=== PATIENT | male | born 1950 | race Caucasian/White ===

== ENCOUNTER 2017-06-30 13:33 | Inpatient (IN) | payer MEDICAID, MEDICARE ==
[~2017-06-30] VITALS: Ht 182.9 cm; Wt 76.2 kg
[2017-06-30] MEDS ORDERED: SODIUM CHLORIDE 0.9% 1,000 ML IVB ONE (13:49)
[2017-06-30 14:26] LABS: Basophils # (auto) 0.1 uL; Basophils % (auto) 1.1 % (0.0-2.0); Eosinophils # (auto) 0.2 uL; Eosinophils % (auto) 3.3 % (0.0-7.0); Hematocrit 39.3 % (41.0-53.0); Hemoglobin 13.1 g/dL (13.5-17.5); Lymphocytes # (auto) 0.7 uL; Lymphocytes % (auto) 9.5 % (10.0-50.0); Mean Corpuscular Hemoglobin 31.8 pg (28.0-32.0); Mean Corpuscular Hgb Conc. 33.3 g/dL (32.0-36.0); Mean Corpuscular Volume 95.5 fL (80.0-100.0); Monocytes # (auto) 0.8 uL; Monocytes % (auto) 11.2 % (0.0-12.0); Neutrophils # (auto) 5.7 uL; Neutrophils % (auto) 74.9 % (37.0-80.0); Platelet Count (auto) 219 10^3/uL (140-450); Red Blood Cells 4.11 10^6/uL (4.5-5.90); Red Cell Distribution Width 14.1 % (11.8-14.3); White Blood Cell 7.6 10^3/uL (4.4-10.8)
[2017-06-30 14:41] LABS: INR 0.99 (0.9-1.15); Partial Thromboplastin Time 30.8 sec (22.64-33.71); Prothrombin Time 10.8 sec (9.37-12.3)
[2017-06-30 14:47] LABS: Albumin 3.9 g/dL (3.4-5.0); BUN/Creatinine Ratio 32.9; Bilirubin, Total 0.6 mg/dL (0.2-1.0); Calcium 8.8 mg/dL (8.5-10.1); Magnesium 2.2 mg/dL (1.6-2.6); Potassium 3.7 mmol/L (3.5-5.1); Total Protein 7.3 g/dL (6.4-8.2)
[2017-06-30] MEDS ORDERED: LACTULOSE 20Gm/30ML SOLN PO PRN (16:30)
[2017-06-30] MEDS ORDERED: LABETALOL HCL 5 MG/ML ML 20ML VIAL IV PRN (16:30)
[2017-06-30] MEDS ORDERED: NITROGLYCERIN 0.4 MG SL TAB SL PRN (16:30)
[2017-06-30] MEDS ORDERED: MORPHINE SULFATE 4 MG/ML SYR/VIAL IV PRN (16:30)
[2017-06-30] MEDS: SODIUM CHLORIDE 0.9% 1,000 ML IV SCH ×3 (16:39→22:05)
[2017-06-30] MEDS ORDERED: ASPirin 81 mg TAB PO ONE (17:00)
[2017-06-30] MEDS ORDERED: ENALAPRIL MALEATE 2.5 MG TAB PO ONE (17:00)
[2017-06-30 17:18] LABS: Folate (Folic Acid) 12.06 ng/mL (5.38-24)
[2017-06-30] MEDS: ENOXAPARIN SOD 40 MG/0.4 ML SYRINGE SC SCH (17:22)
[2017-06-30] MEDS ORDERED: FLUoxetine HCL 10 MG CAP PO ONE (17:45)
[2017-06-30] MEDS ORDERED: LACTULOSE 20Gm/30ML SOLN PO ONE (17:45)
[2017-06-30] MEDS ORDERED: cefTRIAXone 1GM/10ml IVPUSH 10 ML IV ONE (17:45)
[2017-06-30 18:47] VITALS: BP 158/104
[2017-06-30] MEDS: LORazepam 0.5 MG TAB PO PRN (20:44)
[2017-06-30] MEDS ORDERED: IOHEXOL 350 MG/ML 100ML IJ ONE (21:01)
[2017-06-30 21:48] VITALS: BP 153/81
[2017-06-30] MEDS ORDERED: LACTULOSE 20Gm/30ML SOLN PO SCH (22:00)
[2017-06-30] MEDS: CLINDAMYCIN 600MG IV 50 ML IV SCH (22:04)
[2017-06-30] MEDS: ATORVASTATIN 20 MG TAB PO SCH (22:05)
[2017-07-01] VITALS (7 sets, daily range): BP systolic 128–156; BP diastolic 79–105
[2017-07-01] MEDS: MORPHINE SULFATE 4 MG/ML SYR/VIAL IV PRN ×3 (02:03→18:52)
[2017-07-01] MEDS: PROMETHAZINE HCL 25 MG/ML 1ML IV PRN ×2 (02:03→06:39)
[2017-07-01] MEDS: CLINDAMYCIN 600MG IV 50 ML IV SCH ×3 (06:34→22:43)
[2017-07-01] MEDS ORDERED: BACL10TA PO (07:32)
[2017-07-01] MEDS ORDERED: CARV3.1240 PO (07:32)
[2017-07-01] MEDS ORDERED: LISI10TA6 PO (07:32)
[2017-07-01] MEDS ORDERED: TRAM50TA2 PO (07:32)
[2017-07-01] MEDS ORDERED: ASPirin 81 mg TAB PO SCH (10:00)
[2017-07-01] MEDS: ENOXAPARIN SOD 40 MG/0.4 ML SYRINGE SC SCH (10:51)
[2017-07-01] MEDS: ENALAPRIL MALEATE 2.5 MG TAB PO SCH (10:52)
[2017-07-01] MEDS: ASPirin 81 mg TAB PO SCH (10:52)
[2017-07-01] MEDS: FLUoxetine HCL 10 MG CAP PO SCH (10:52)
[2017-07-01] MEDS: cefTRIAXone 1GM/10ml IVPUSH 10 ML IV SCH (10:52)
[2017-07-01] MEDS: SODIUM CHLORIDE 0.9% 1,000 ML IV SCH ×2 (10:53→17:31)
[2017-07-01] MEDS: LORazepam 0.5 MG TAB PO PRN (11:07)
[2017-07-01] MEDS: BACLOFEN 10 MG TAB PO PRN (16:34)
[2017-07-01] MEDS: ATORVASTATIN 20 MG TAB PO SCH (22:43)
[2017-07-02] VITALS (7 sets, daily range): BP systolic 112–151; BP diastolic 71–93
[2017-07-02] MEDS: BACLOFEN 10 MG TAB PO PRN (02:27)
[2017-07-02] MEDS: MORPHINE SULFATE 4 MG/ML SYR/VIAL IV PRN ×4 (02:36→20:39)
[2017-07-02] MEDS: SODIUM CHLORIDE 0.9% 1,000 ML IV SCH ×2 (04:00→13:04)
[2017-07-02] MEDS: LORazepam 0.5 MG TAB PO PRN (05:25)
[2017-07-02] MEDS: CLINDAMYCIN 600MG IV 50 ML IV SCH ×3 (05:35→22:39)
[2017-07-02 07:20] LABS: Urine Bacteria NONE SEEN /hpf (None Seen); Urine Blood Negative /uL (Negative); Urine Mucus FEW (None Seen); Urine Specific Gravity 1.015 (1.001-1.035); Urine WBC <1 /hpf (0 - 3)
[2017-07-02 07:26] LABS: Alcohol, Urine < 3.0 mg/dL (0-5); Amphetamine Screen, Urine NEGATIVE (NEGATIVE); Barbiturate Scree,Urine NEGATIVE (NEGATIVE); Benzodiazephine Screen, Urine NEGATIVE (NEGATIVE); Cannabinoid Screen, Urine POSITIVE (NEGATIVE); Cocaine Screen, Urine NEGATIVE (NEGATIVE); Opiate Scree,Urine POSITIVE (NEGATIVE); Phencyclidine Screen, Urine NEGATIVE (NEGATIVE)
[2017-07-02] MEDS: ENOXAPARIN SOD 40 MG/0.4 ML SYRINGE SC SCH (13:01)
[2017-07-02] MEDS: ASPirin 81 mg TAB PO SCH (13:03)
[2017-07-02] MEDS: cefTRIAXone 1GM/10ml IVPUSH 10 ML IV SCH (13:03)
[2017-07-02] MEDS: ENALAPRIL MALEATE 2.5 MG TAB PO SCH (13:03)
[2017-07-02] MEDS: FLUoxetine HCL 10 MG CAP PO SCH (13:03)
[2017-07-02] MEDS: ATORVASTATIN 20 MG TAB PO SCH (22:39)
[2017-07-02] MEDS: TEMAZEPAM 15 MG CAP PO PRN (23:33)
[2017-07-03 05:00] VITALS: BP_SYST 118; BP_SYST 125; BP_SYST 127; BP_DIAS 101; BP_DIAS 96; BP_DIAS 98
[2017-07-03] MEDS: BACLOFEN 10 MG TAB PO PRN ×2 (05:38→13:57)
[2017-07-03] MEDS: MORPHINE SULFATE 4 MG/ML SYR/VIAL IV PRN ×3 (05:39→19:06)
[2017-07-03] MEDS: CLINDAMYCIN 600MG IV 50 ML IV SCH ×3 (05:39→21:02)
[2017-07-03 07:08] LABS: Potassium 3.9 mmol/L (3.5-5.1)
[2017-07-03 07:12] LABS: BUN/Creatinine Ratio 14.3; Calcium 8.8 mg/dL (8.5-10.1)
[2017-07-03 07:30] VITALS: BP 125/87
[2017-07-03 08:15] VITALS: BP_SYST 103; BP_SYST 125; BP_SYST 130; BP_DIAS 74; BP_DIAS 82; BP_DIAS 87
[2017-07-03] MEDS: LORazepam 0.5 MG TAB PO PRN (09:57)
[2017-07-03] MEDS: cefTRIAXone 1GM/10ml IVPUSH 10 ML IV SCH (09:58)
[2017-07-03] MEDS: FLUoxetine HCL 10 MG CAP PO SCH (09:58)
[2017-07-03] MEDS: ASPirin 81 mg TAB PO SCH (09:58)
[2017-07-03] MEDS: ENALAPRIL MALEATE 2.5 MG TAB PO SCH (09:58)
[2017-07-03] MEDS: ENOXAPARIN SOD 40 MG/0.4 ML SYRINGE SC SCH (09:59)
[2017-07-03] MEDS: SODIUM CHLORIDE 0.9% 1,000 ML IV SCH ×2 (09:59)
[2017-07-03] MEDS ORDERED: IOHEXOL 350 MG/ML 100ML IJ ONE (10:10)
[2017-07-03 11:50] VITALS: BP 143/83
[2017-07-03 17:13] VITALS: BP 126/93
[2017-07-03] MEDS: TEMAZEPAM 15 MG CAP PO PRN (21:02)
[2017-07-03] MEDS: ATORVASTATIN 20 MG TAB PO SCH (21:02)
[2017-07-03 22:00] VITALS: BP 134/77
[2017-07-04] MEDS: MORPHINE SULFATE 4 MG/ML SYR/VIAL IV PRN ×4 (00:10→13:57)
[2017-07-04] MEDS: LORazepam 0.5 MG TAB PO PRN (02:36)
[2017-07-04] MEDS: PROMETHAZINE HCL 25 MG/ML 1ML IV PRN (02:36)
[2017-07-04] MEDS: BACLOFEN 10 MG TAB PO PRN ×2 (02:57→10:51)
[2017-07-04 05:00] VITALS: BP 129/105
[2017-07-04] MEDS: CLINDAMYCIN 600MG IV 50 ML IV SCH ×2 (05:31→13:42)
[2017-07-04 08:00] VITALS: BP 125/87
[2017-07-04] MEDS: SODIUM CHLORIDE 0.9% 1,000 ML IV SCH (08:00)
[2017-07-04 09:00] VITALS: BP 145/92
[2017-07-04] MEDS: ASPirin 81 mg TAB PO SCH (09:04)
[2017-07-04] MEDS: cefTRIAXone 1GM/10ml IVPUSH 10 ML IV SCH (09:04)
[2017-07-04] MEDS: ENOXAPARIN SOD 40 MG/0.4 ML SYRINGE SC SCH (09:05)
[2017-07-04] MEDS: ENALAPRIL MALEATE 2.5 MG TAB PO SCH (09:06)
[2017-07-04] MEDS ORDERED: FLUoxetine HCL 20 MG CAP PO SCH (10:00)
[2017-07-04 13:00] VITALS: BP 132/86
[2017-07-04 15:28] VITALS: BP 129/105
== END 2017-07-04 15:55 | disposition home health service (06) | DRG 68 ==
LOC: EDUNIT# 13:33 → ER 13:33 → EDBD 13:33 → TELE 13:34 → TELE-CENTR 18:34 → TELE-WESTW 07-01 00:25
PROVIDERS: ADMIT Internal Medicine; ATTEND Family Medicine
DX: I65.21 Occlusion and stenosis of right carotid artery (principal); I71.2 Thoracic aortic aneurysm, without rupture; L03.115 Cellulitis of right lower limb; G62.9 Polyneuropathy, unspecified; R45.851 Suicidal ideations; J44.1 Chronic obstructive pulmonary disease with (acute) exacerbation; I95.1 Orthostatic hypotension; I67.2 Cerebral atherosclerosis; F12.10 Cannabis abuse, uncomplicated; F32.9 Major depressive disorder, single episode, unspecified; F41.9 Anxiety disorder, unspecified; G89.29 Other chronic pain; I10 Essential (primary) hypertension; I70.0 Atherosclerosis of aorta; I71.4 Abdominal aortic aneurysm, without rupture; L98.9 Disorder of the skin and subcutaneous tissue, unspecified; M19.90 Unspecified osteoarthritis, unspecified site; M20.10 Hallux valgus (acquired), unspecified foot; M21.00 Valgus deformity, not elsewhere classified, unspecified site; M21.619 Bunion of unspecified foot; M47.814 Spondylosis without myelopathy or radiculopathy, thoracic region; M54.16 Radiculopathy, lumbar region; Z86.79 Personal history of other diseases of the circulatory system; Z87.891 Personal history of nicotine dependence; Z98.49 Cataract extraction status, unspecified eye; Z88.8 Allergy status to other drugs, medicaments and biological substances; Z88.5 Allergy status to narcotic agent; Z79.82 Long term (current) use of aspirin
CPT/HCPCS: 36415; 70450; 70498; 71045; 71275; 73600; 73630; 80048; 80053; 80307; 81001; 82550; 82607; 82746; 83036; 83735; 83880; 84443; 84484; 85025; 85379; 85610; 85652; 85730; 86141; 93005; 93886; 93971; 94761; 95819; 96360; 97116; 97163; 97530; J3490

== ENCOUNTER 2017-07-22 00:11 | Emergency (ER) | payer SELFPAY ==
[~2017-07-22] VITALS: Ht 185.4 cm; Wt 68.0 kg
[~2017-07-22 00:11] MED LIST: BACL10TA PO; CARV3.1240 PO; LISI10TA6 PO; TRAM50TA2 PO
[2017-07-22] MEDS ORDERED: ALBUTEROL SULF 2.5 MG/0.5ML(0.5%) NEB SOLN NEB ONE (02:00)
[2017-07-22] MEDS ORDERED: BUDESONIDE (INHALATION) 0.5 MG/2 ML NEB NEB ONE (02:00)
[2017-07-22 02:05] VITALS: BP 120/85
[2017-07-22] MEDS ORDERED: HYDROcodone-ACET 10/325MG TAB PO ONE (02:30)
[2017-07-22] MEDS ORDERED: TRIAMCINOLONE 40MG/ML 1ML VIAL IM ONE (02:45)
== END 2017-07-22 03:24 | disposition home or self-care (01) ==
LOC: ER 00:11 → EDBD 00:11 → ER 03:24
DX: K59.03 Drug induced constipation (principal); T40.2X5A Adverse effect of other opioids, initial encounter; G89.29 Other chronic pain; I10 Essential (primary) hypertension; J44.9 Chronic obstructive pulmonary disease, unspecified; Z88.6 Allergy status to analgesic agent; Z88.5 Allergy status to narcotic agent; Z86.73 Personal history of transient ischemic attack (TIA), and cerebral infarction without residual deficits; Y92.89 Other specified places as the place of occurrence of the external cause
CPT/HCPCS: 94640; 96372; 99283; J3301

== ENCOUNTER 2017-08-20 01:28 | Inpatient (IN) | payer MEDICARE ==
[2017-08-20] VITALS (66 sets, daily range): BP systolic 72–117; BP diastolic 33–84
[~2017-08-20] VITALS: Ht 188 cm; Wt 74.5 kg
[2017-08-20] MEDS ORDERED: NOREPINEPHRINE 8 MG/250ML KIT 250 ML IV ONE (01:56)
[2017-08-20 02:01] LABS: Urine WBC None Seen /hpf (0 - 3)
[2017-08-20 02:08] LABS: Basophils # (auto) 0 uL; Eosinophils # (auto) 0.2 uL; Mean Corpuscular Hgb Conc. 30.7 g/dL (32.0-36.0); Nucleated Red Blood Cells % 0.1 %; White Blood Cell 10.3 10^3/uL (4.4-10.8)
[2017-08-20 02:09] LABS: Basophils % (auto) 0.4 % (0.0-2.0); Eosinophils % (auto) 1.9 % (0.0-7.0); Hematocrit 38.3 % (41.0-53.0); Hemoglobin 11.8 g/dL (13.5-17.5); Lymphocytes # (auto) 1.8 uL; Lymphocytes % (auto) 17.8 % (10.0-50.0); Mean Corpuscular Hemoglobin 31.8 pg (28.0-32.0); Mean Corpuscular Volume 103.6 fL (80.0-100.0); Monocytes # (auto) 0.6 uL; Neutrophils # (auto) 7.6 uL; Neutrophils % (auto) 73.9 % (37.0-80.0); Platelet Count (auto) 115 10^3/uL (140-450); Red Blood Cells 3.69 10^6/uL (4.5-5.90); Red Cell Distribution Width 15.4 % (11.8-14.3)
[2017-08-20 02:16] LABS: Albumin 3.1 g/dL (3.4-5.0); BUN/Creatinine Ratio 14.4; Calcium 8.1 mg/dL (8.5-10.1); Magnesium 2.2 mg/dL (1.6-2.6); Potassium 3.6 mmol/L (3.5-5.1)
[2017-08-20 02:17] LABS: INR 1.16 (0.9-1.15); Partial Thromboplastin Time 41.5 sec (22.64-33.71); Prothrombin Time 12.7 sec (9.37-12.3)
[2017-08-20 02:21] LABS: Bilirubin, Total 0.5 mg/dL (0.2-1.0); Total Protein 5.6 g/dL (6.4-8.2)
[2017-08-20 02:24] LABS: Amphetamine Screen, Urine NEGATIVE (NEGATIVE); Barbiturate Scree,Urine NEGATIVE (NEGATIVE); Benzodiazephine Screen, Urine NEGATIVE (NEGATIVE); Cannabinoid Screen, Urine POSITIVE (NEGATIVE); Cocaine Screen, Urine NEGATIVE (NEGATIVE); Opiate Scree,Urine POSITIVE (NEGATIVE); Phencyclidine Screen, Urine NEGATIVE (NEGATIVE)
[2017-08-20 02:27] LABS: Urine Bacteria FEW /hpf (None Seen); Urine Blood 2+ /uL (Negative); Urine Specific Gravity 1.039 (1.001-1.035); Urine Sperm PRESENT /hpf (None Seen)
[2017-08-20 02:32] LABS: Alcohol, Urine < 3.0 mg/dL (0-5)
[2017-08-20] MEDS ORDERED: NOREPINEPHRINE 8 MG/250ML KIT 250 ML IV SCH (02:53)
[2017-08-20] MEDS ORDERED: ONDANSETRON HCL 4 MG/2 ML VIAL IV PRN (08:15)
[2017-08-20] MEDS ORDERED: VANCOMYCIN PER PHARMACY 0 MG IV SCH (08:15)
[2017-08-20] MEDS ORDERED: VANCOMYCIN 1GM/250ML 250 ML IV ONE (08:30)
[2017-08-20] MEDS: PIPERACILLIN-TAZOB 3.375GM 100 ML IV SCH ×3 (08:53→21:57)
[2017-08-20] MEDS ORDERED: PHENYTOIN IV DILANTIN 1,000 MG in SODIUM CHL 0.9% 250 ML IV ONE (11:30)
[2017-08-20] MEDS ORDERED: LORazepam 2MG/ML-1ML VIAL IV PRN (11:30)
[2017-08-20] MEDS: MIDAZOLAM DRIP 50 mg/50mL 50 ML IV SCH (11:32)
[2017-08-20] MEDS ORDERED: PHENYLEPHRINE INJ 20 MG in SODIUM CHL 0.9% 250 ML IV SCH (11:48)
[2017-08-20] MEDS ORDERED: PHENYLEPHRINE IV 250 ML IV ONE (11:51)
[2017-08-20] MEDS ORDERED: MIDAZOLAM DRIP 50 mg/50mL 50 ML IV ONE (11:51)
[2017-08-20] MEDS: PANTOPRAZOLE 40 MG/10 ML VIAL IV SCH (12:00)
[2017-08-20] MEDS: ENOXAPARIN SOD 30 MG/0.3 ML SYRINGE SC SCH (12:00)
[2017-08-20] MEDS ORDERED: SODIUM CHL 0.9% IV ONE (12:15)
[2017-08-20] MEDS ORDERED: methylPREDNISolone ACETATE 80 MG/ML VL IM ONE (12:15)
[2017-08-20] MEDS ORDERED: METHYLPREDNISOLONE SOD SUCC IV ONE ×2 (12:15→13:30)
[2017-08-20] MEDS ORDERED: SODIUM CHLORIDE 0.9% IV ONE (13:30)
[2017-08-20] MEDS ORDERED: PHENYTOIN SODIUM 50 MG/ML 2ML VIAL IV SCH (14:00)
[2017-08-20] MEDS: SODIUM CHLORIDE 0.9% 1,000 ML IV SCH (14:53)
[2017-08-20] MEDS: PHENYLEPHRINE INJ 40 MG in SODIUM CHL 0.9% 250 ML IV SCH ×2 (15:33→21:53)
[2017-08-20] MEDS: NOREPINEPHRINE BITARTRATE 16 MG in D5W 5% 250 ML IV SCH ×2 (18:30→21:49)
[2017-08-20] MEDS: VASOPRESSIN 50 UNITS in D5W 5% 247.5 ML IV SCH (20:00)
[2017-08-20] MEDS ORDERED: HYDR-4072 PO (21:26)
[2017-08-20] MEDS ORDERED: ONDA4TAB5 PO (21:26)
[2017-08-20] MEDS ORDERED: RANI-226 PO (21:26)
[2017-08-20] MEDS ORDERED: DULO60CA PO (21:26)
[2017-08-20] MEDS ORDERED: CLOP75TA41 PO (21:26)
[2017-08-20] MEDS ORDERED: ATOR40TA52 PO (21:26)
[2017-08-20] MEDS ORDERED: HYDR12.56 PO (21:26)
[2017-08-20] MEDS: PHENYTOIN SODIUM 50 MG/ML 2ML VIAL IV SCH (21:59)
[2017-08-21] VITALS (107 sets, daily range): BP systolic 71–141; BP diastolic 46–89
[2017-08-21] MEDS ORDERED: VANCOMYCIN 1GM/250ML 250 ML IV SCH
[2017-08-21] MEDS: PHENYLEPHRINE INJ 40 MG in SODIUM CHL 0.9% 250 ML IV SCH ×3 (02:20→14:40)
[2017-08-21] MEDS: PIPERACILLIN-TAZOB 3.375GM 100 ML IV SCH ×4 (03:10→20:08)
[2017-08-21 03:45] LABS: Hematocrit 41.8 % (41.0-53.0); Hemoglobin 13.5 g/dL (13.5-17.5); Mean Corpuscular Hemoglobin 30.9 pg (28.0-32.0); Mean Corpuscular Hgb Conc. 32.4 g/dL (32.0-36.0); Mean Corpuscular Volume 95.6 fL (80.0-100.0); Platelet Count (auto) 139 10^3/uL (140-450); Red Blood Cells 4.37 10^6/uL (4.5-5.90); Red Cell Distribution Width 14.4 % (11.8-14.3); White Blood Cell 14.5 10^3/uL (4.4-10.8)
[2017-08-21] MEDS: SODIUM CHLORIDE 0.9% 1,000 ML IV SCH ×4 (03:50→23:50)
[2017-08-21 03:59] LABS: Basophils % (manual) 0 (0.0-2.0); Blast Cells 0; Eosinophils % (manual) 0 (0-7); Metamyelocytes % 0; Myelocytes % 0; Promyelocytes % 0; Reactive Lymphocytes 0
[2017-08-21 04:03] LABS: Albumin 2.6 g/dL (3.4-5.0); BUN/Creatinine Ratio 16.5; Calcium 7.7 mg/dL (8.5-10.1); Potassium 4.6 mmol/L (3.5-5.1)
[2017-08-21 04:05] LABS: Bilirubin, Total 1.3 mg/dL (0.2-1.0); Total Protein 5.2 g/dL (6.4-8.2)
[2017-08-21] MEDS: NOREPINEPHRINE BITARTRATE 16 MG in D5W 5% 250 ML IV SCH ×2 (04:31→14:40)
[2017-08-21 04:35] LABS: Band Neutrophils % (manual) 4; Lymphocytes % (manual) 3 (10.0-50.0); Monocytes % (manual) 1 (0-12)
[2017-08-21] MEDS ORDERED: SODIUM BICARBONATE 8.4% INJ 50ML SYRINGE ONE ×4 (05:40→18:15)
[2017-08-21] MEDS ORDERED: SODIUM BICARBONATE 8.4 % INJ 50ML VIAL IV ONE ×3 (05:45→09:45)
[2017-08-21] MEDS: PHENYTOIN SODIUM 50 MG/ML 2ML VIAL IV SCH ×3 (05:54→22:09)
[2017-08-21] MEDS ORDERED: DEXTROSE (50%) 50ML SYRG IV PRN (06:00)
[2017-08-21] MEDS: ACCU-CHEK COMFORT CURVE STRIP VI SCH ×3 (06:18→18:15)
[2017-08-21] MEDS: InsuLIN REG 1unit/0.01ml Soln (100units/ml) SC SCH ×3 (06:19→18:25)
[2017-08-21] MEDS: MIDAZOLAM DRIP 50 mg/50mL 50 ML IV SCH (08:15)
[2017-08-21] MEDS ORDERED: SODIUM BICARBONATE 50ML VIAL 100 ML in SOD CHL 0.45% 1,000 ML IV ONE (09:45)
[2017-08-21] MEDS: ENOXAPARIN SOD 30 MG/0.3 ML SYRINGE SC SCH (10:00)
[2017-08-21] MEDS: PANTOPRAZOLE 40 MG/10 ML VIAL IV SCH (10:00)
[2017-08-21] MEDS: LINEZOLID 600MG/300ML 300 ML IV SCH (13:00)
[2017-08-21] MEDS ORDERED: PHENYLEPHRINE IV 250 ML IV ONE (14:38)
[2017-08-21] MEDS: VASOPRESSIN 50 UNITS in D5W 5% 247.5 ML IV SCH (19:25)
[2017-08-22] VITALS (58 sets, daily range): BP systolic 85–143; BP diastolic 50–83
[2017-08-22] MEDS: LINEZOLID 600MG/300ML 300 ML IV SCH (00:06)
[2017-08-22] MEDS: InsuLIN REG 1unit/0.01ml Soln (100units/ml) SC SCH ×2 (00:06→05:38)
[2017-08-22] MEDS: ACCU-CHEK COMFORT CURVE STRIP VI SCH ×2 (00:06→05:37)
[2017-08-22] MEDS: NOREPINEPHRINE BITARTRATE 16 MG in D5W 5% 250 ML IV SCH (01:33)
[2017-08-22] MEDS: PIPERACILLIN-TAZOB 3.375GM 100 ML IV SCH ×2 (02:26→08:53)
[2017-08-22 04:31] LABS: Basophils # (auto) 0 uL; Basophils % (auto) 0.4 % (0.0-2.0); Eosinophils # (auto) 0 uL; Hematocrit 34.5 % (41.0-53.0); Hemoglobin 11.7 g/dL (13.5-17.5); Lymphocytes # (auto) 0.2 uL; Lymphocytes % (auto) 1.8 % (10.0-50.0); Mean Corpuscular Hemoglobin 32.1 pg (28.0-32.0); Mean Corpuscular Hgb Conc. 33.8 g/dL (32.0-36.0); Mean Corpuscular Volume 94.7 fL (80.0-100.0); Monocytes # (auto) 0.4 uL; Neutrophils # (auto) 9.8 uL; Neutrophils % (auto) 93.8 % (37.0-80.0); Nucleated Red Blood Cells % 0.1 %; Platelet Count (auto) 104 10^3/uL (140-450); Red Blood Cells 3.64 10^6/uL (4.5-5.90); Red Cell Distribution Width 14.6 % (11.8-14.3); White Blood Cell 10.4 10^3/uL (4.4-10.8)
[2017-08-22 04:42] LABS: Lactic Acid w/Reflex 4.7 mmol/L (0.4-2.0); Potassium 4.3 mmol/L (3.5-5.1)
[2017-08-22 04:48] LABS: Albumin 2.2 g/dL (3.4-5.0); BUN/Creatinine Ratio 17.6; Calcium 7.2 mg/dL (8.5-10.1)
[2017-08-22 04:52] LABS: Bilirubin, Total 0.9 mg/dL (0.2-1.0)
[2017-08-22] MEDS: PHENYTOIN SODIUM 50 MG/ML 2ML VIAL IV SCH (05:38)
[2017-08-22] MEDS: SODIUM CHLORIDE 0.9% 1,000 ML IV SCH (06:30)
[2017-08-22 07:13] LABS: Lactic Acid w/Reflex 4.2 mmol/L (0.4-2.0)
[2017-08-22] MEDS ORDERED: SODIUM BICARBONATE 8.4 % INJ 50ML VIAL IV ONE (09:45)
[2017-08-22] MEDS: ENOXAPARIN SOD 30 MG/0.3 ML SYRINGE SC SCH (10:00)
[2017-08-22] MEDS: PANTOPRAZOLE 40 MG/10 ML VIAL IV SCH (10:19)
[2017-08-22] MEDS ORDERED: SODIUM BICARBONATE 50ML VIAL 50 ML in SOD CHL 0.45% 1,000 ML IV SCH (11:15)
[2017-08-22] MEDS ORDERED: LORazepam 2MG/ML-1ML VIAL IV PRN (12:45)
[2017-08-22] MEDS ORDERED: MORPHINE SULFATE 4 MG/ML SYR/VIAL IV PRN (12:45)
== END 2017-08-22 18:30 | disposition expired | DRG 871 ==
LOC: EDBD 01:28 → ER 01:33 → TELE 01:34 → ICU WEST 09:43
PROVIDERS: ADMIT Nurse Practitioner Family; ATTEND Internal Medicine
PROC: 5A1945Z Respiratory Ventilation, 24-96 Consecutive Hours (ICD-10-PCS; principal; 2017-08-20)
PROC: 5A12012 Performance of Cardiac Output, Single, Manual (ICD-10-PCS; 2017-08-20)
PROC: 0BH17EZ Insertion of Endotracheal Airway into Trachea, Via Natural or Artificial Opening (ICD-10-PCS; 2017-08-20)
PROC: 02HV33Z Insertion of Infusion Device into Superior Vena Cava, Percutaneous Approach (ICD-10-PCS; 2017-08-21)
DX: A41.9 Sepsis, unspecified organism (principal); I21.4 Non-ST elevation (NSTEMI) myocardial infarction; I46.9 Cardiac arrest, cause unspecified; I71.02 Dissection of abdominal aorta; J69.0 Pneumonitis due to inhalation of food and vomit; J96.00 Acute respiratory failure, unspecified whether with hypoxia or hypercapnia; G82.50 Quadriplegia, unspecified; G62.9 Polyneuropathy, unspecified; M48.02 Spinal stenosis, cervical region; N17.0 Acute kidney failure with tubular necrosis; K72.01 Acute and subacute hepatic failure with coma; E87.1 Hypo-osmolality and hyponatremia; G40.919 Epilepsy, unspecified, intractable, without status epilepticus; E87.2 Acidosis; G93.1 Anoxic brain damage, not elsewhere classified; G95.29 Other cord compression; I13.0 Hypertensive heart and chronic kidney disease with heart failure and stage 1 through stage 4 chronic kidney disease, or unspecified chronic kidney disease; N28.0 Ischemia and infarction of kidney; S12.110A Anterior displaced Type II dens fracture, initial encounter for closed fracture; S22.43XA Multiple fractures of ribs, bilateral, initial encounter for closed fracture; M48.56XA Collapsed vertebra, not elsewhere classified, lumbar region, initial encounter for fracture; M48.54XA Collapsed vertebra, not elsewhere classified, thoracic region, initial encounter for fracture; N18.9 Chronic kidney disease, unspecified; I71.4 Abdominal aortic aneurysm, without rupture; R65.20 Severe sepsis without septic shock; R57.8 Other shock; F10.10 Alcohol abuse, uncomplicated; F12.90 Cannabis use, unspecified, uncomplicated; F41.9 Anxiety disorder, unspecified; G89.29 Other chronic pain; F32.9 Major depressive disorder, single episode, unspecified; R29.6 Repeated falls; J44.9 Chronic obstructive pulmonary disease, unspecified; W18.39XA Other fall on same level, initial encounter; M54.16 Radiculopathy, lumbar region; Z51.5 Encounter for palliative care; Z66 Do not resuscitate; Z83.3 Family history of diabetes mellitus; Z86.73 Personal history of transient ischemic attack (TIA), and cerebral infarction without residual deficits; Z86.79 Personal history of other diseases of the circulatory system; Z87.891 Personal history of nicotine dependence; Z88.5 Allergy status to narcotic agent; Z88.6 Allergy status to analgesic agent; Z88.8 Allergy status to other drugs, medicaments and biological substances; Z79.899 Other long term (current) drug therapy; Z91.81 History of falling; Y93.89 Activity, other specified; Y92.89 Other specified places as the place of occurrence of the external cause; Y99.8 Other external cause status
CPT/HCPCS: 36415; 36600; 51702; 70450; 71045; 71250; 72125; 74176; 80053; 80185; 80202; 80307; 81001; 82805; 82962; 83036; 83605; 83735; 83880; 84484; 85007; 85025; 85027; 85379; 85610; 85730; 87040; 87070; 87081; 87086; 87205; 92950; 93005; 94002; 94003; 95819; 96361; 96365; 99291; C9113; J1815; J2250; J2543; J3490; J7060